=== PATIENT | female | born 1945 | race Caucasian/White ===

== ENCOUNTER 2022-07-01 00:53 | Inpatient (IN) ==
[2022-07-01] MEDS ORDERED: STAT IV Infusion **Titration per Protocol STA (01:03)
--- NOTE | 2022-07-01 01:06 | Emergency Department Note ---
Impression & Plan Atrial fibrillation with RVR ADMIT ED Provider Note HPI: The patient is a 77-year-old female with history of paroxysmal atrial fibrillation, not on any anticoagulation, presents the emergency department this evening with a chief complaint of palpitations. Patient arrives via EMS, states that approximately 2 hours prior to arrival she began to experience a sensation of palpitations similar to those that she is experienced in the past associated with atrial fibrillation with RVR. Patient states that she did take a dose of her as needed propranolol but this did not resolve her symptoms. Patient then contacted EMS. She stated that she was feeling lightheaded at the time. EMS arrived, patient was given a diltiazem bolus and IV fluid bolus prior to arrival here to the ED. On arrival patient's heart rate is improved into the 130s from 150s-180s. Patient is conversational on arrival, states that she is feeling much improved, denies any chest pain or shortness of breath. Patient is saturating well on room air on arrival. ROS: -Cardio: Palpitations/atrial fibrillation with RVR *10 point review systems was conducted and is otherwise negative unless stated above *Outpatient medications and allergy history reviewed PE: General: Alert, NAD HEENT: Normocephalic, atraumatic Eyes: Extraocular eye movement is intact, no scleral erythema Pulmonary: Clear to auscultation bilaterally, no wheezing Cardio: Regular rate and rhythm GI: Abdomen is soft, nontender : No suprapubic tenderness MSK: No evidence of trauma or malformation of the extremities, no edema Skin: No evidence of rash Neuro: Alert, no focal deficits Psychiatric: Cooperative cardiac monitor technician: - An order was placed for continuous cardiac monitoring - Patient was noted to be in atrial fibrillation with a rate of 145 EKG: Rate: 133 Rhythm: Atrial fibrillation Intervals: Within normal limits ST changes: No ST elevation Time: 0102 Medical Decision Making: Patient presented to the emergency department with a chief complaint of palpitations. She has a history of paroxysmal atrial fibrillation. Shortly after arrival patient was placed on monitor tech, IV established, lab work obtained. Patient's lab work is largely unremarkable, troponin is within normal limits, no critical electrolyte abnormalities are noted. TSH is within normal limits. Patient was placed on a diltiazem drip, heart rates remained elevated although improved, she remained in the 120s mostly on diltiazem drip and therefore was given IV metoprolol in addition, this did result in good rate control however the patient remained in atrial fibrillation despite observation here in the ED for multiple hours. In my reassessment the patient is in atrial fibrillation, she is not on anticoagulation, I discussed options for admission versus anticoagulation and discharge, at this time I believe it is most appropriate for the patient to be admitted for cardiology consultation, to which the patient is in agreement. She will be placed on heparin drip as she may potentially be arranged for cardioversion in the morning, if determined appropriate by cardiology. Patient expressed an agreement understanding. Case was discussed with the on-call hospitalist for [facility], Dr. Blankenship, and the patient was admitted in stable condition to a telemetry bed on heparin drip for further care. * CRITICAL CARE TIME: (50) minutes -Stabilization of tachyarrhythmia/atrial fibrillation with RVR requiring administration of IV rate control agents, time spent at the bedside, interpretation of diagnostic studies and EKGs, arrangement of admission Diagnosis: 1. Atrial fibrillation with RVR Disposition: Admission Jack Murillo DO Emergency Medicine Past Med/Surg History Social History Smoking Status: Never smoker Preferred Language: Andorran Feels Safe at Home: Yes Allergies Allergies Allergy/AdvReac Type Severity Reaction Status Date / Time Iodinated Contrast Media Allergy Intermediate Hives Verified 07/01/22 03:05 Sulfa (Sulfonamide Allergy Intermediate Rash Verified 07/01/22 03:05 Antibiotics) morphine AdvReac Severe SEVERE Verified 07/01/22 03:05 VOMITING Home Meds Home Medications Medication Instructions Recorded Confirmed levothyroxine 50 mcg tablet 50 mcg PO DAILYBB 04/10/22 07/01/22 propranolol 10 mg tablet 10 mg PO DIRECTED PRN A-FIB 04/10/22 07/01/22 EPISODES Results & Data (ED) Vital Signs Vital Signs - 24 hr 07/01/22 01:07 07/01/22 01:07 07/01/22 01:07 Temperature 36.8 C Temperature Source Oral Pulse Rate 134 H 139 H Pulse Rate from SpO2 Sensor Pulse Rhythm Regular Irregular Pulse Strength Normal Respiratory Rate 18 18 Respiratory Effort / Characteristics Non-Labored Spontaneous Respiratory Depth Normal Respiratory Pattern Regular Blood Pressure 127/80 Blood Pressure Mean 95 Blood Pressure Position Semi-fowlers Pulse Oximetry 98 98 97 Oxygen Delivery Method Room Air Room Air Room Air Oxygen Flow Rate 0 Sepsis Recent Fever Within 48 Hours No Sepsis New/Unexplained Change in Mental Status No Sepsis Action Taken by Nursing No Action Required 07/01/22 01:03 07/01/22 01:30 07/01/22 01:31 Temperature Temperature Source Pulse Rate 125 H 136 H Pulse Rate from SpO2 Sensor Pulse Rhythm Pulse Strength Respiratory Rate 16 18 Respiratory Effort / Characteristics Respiratory Depth Respiratory Pattern Blood Pressure 106/71 Blood Pressure Mean 82 Blood Pressure Position Pulse Oximetry 99 93 Oxygen Delivery Method Oxygen Flow Rate Sepsis Recent Fever Within 48 Hours Sepsis New/Unexplained Change in Mental Status Sepsis Action Taken by Nursing 07/01/22 01:31 07/01/22 02:00 07/01/22 02:00 Temperature Temperature Source Pulse Rate 105 H Pulse Rate from SpO2 Sensor Pulse Rhythm Pulse Strength Respiratory Rate 14 17 Respiratory Effort / Characteristics Respiratory Depth Respiratory Pattern Blood Pressure 130/71 Blood Pressure Mean 90 Blood Pressure Position Pulse Oximetry 96 95 Oxygen Delivery Method Oxygen Flow Rate Sepsis Recent Fever Within 48 Hours Sepsis New/Unexplained Change in Mental Status Sepsis Action Taken by Nursing 07/01/22 02:15 07/01/22 02:15 07/01/22 02:23 Temperature Temperature Source Pulse Rate 104 H Pulse Rate from SpO2 Sensor 92 H Pulse Rhythm Pulse Strength Respiratory Rate 20 19 Respiratory Effort / Characteristics Respiratory Depth Respiratory Pattern Blood Pressure 128/89 Blood Pressure Mean 102 Blood Pressure Position Pulse Oximetry 96 95 Oxygen Delivery Method Oxygen Flow Rate Sepsis Recent Fever Within 48 Hours Sepsis New/Unexplained Change in Mental Status Sepsis Action Taken by Nursing 07/01/22 02:23 07/01/22 02:30 07/01/22 02:30 Temperature Temperature Source Pulse Rate 87 Pulse Rate from SpO2 Sensor 79 Pulse Rhythm Pulse Strength Respiratory Rate 20 Respiratory Effort / Characteristics Respiratory Depth Respiratory Pattern Blood Pressure 102/66 104/75 Blood Pressure Mean 78 84 Blood Pressure Position Pulse Oximetry 95 Oxygen Delivery Method Oxygen Flow Rate Sepsis Recent Fever Within 48 Hours Sepsis New/Unexplained Change in Mental Status Sepsis Action Taken by Nursing Laboratory Data Result diagrams: 07/01/22 01:09 07/01/22 01:09 Lab Results 07/01/22 07/01/22 07/01/22 Range/Units 01:09 01:09 01:09 WBC 4.52 L (4.8-10.8) K/ul RBC 4.34 (3.93-5.22) M/uL Hgb 13.0 (12.0-16.0) g/dl Hct 38.7 (34.1-44.9) % MCV 89.2 (80.0-100.0) fL MCH 30.0 (25.0-34.0) pg MCHC 33.6 (32.0-36.0) g/dL RDW Std Deviation 43.8 (36.4-46.3) fL RDW Coeff of Elysia 13.3 (11.5-14.5) % Plt Count 223 (130-400) K/uL MPV 8.8 L (9.4-12.3) fL Immature Gran % (Auto) 0.2 % Neut % (Auto) 43.2 % Lymph % (Auto) 40.9 % [place] % (Auto) 10.6 % Eos % (Auto) 4.2 % Baso % (Auto) 0.9 % Neut # (Auto) 1.95 (1.4-6.5) K/uL Lymph # (Auto) 1.85 (1.2-3.4) K/uL [place] # (Auto) 0.48 (0.24-0.82) K/uL Eos # (Auto) 0.19 (0-0.50) K/uL Baso # (Auto) 0.04 (0-0.2) K/uL Immature Gran # (Auto) 0.01 (0.00-0.02) K/uL PT 10.3 (9.0-12.0) Seconds INR 1.0 (0.9-1.1) APTT 24.2 (21.0-31.0) Seconds PTT Ratio 0.9 Sodium 140 (136-145) mmol/L Potassium 3.4 L (3.5-5.1) mmol/L Chloride 105 (98-107) mmol/L Carbon Dioxide 28 (21-32) mmol/L Anion Gap 7 (3-11) BUN 14 (6-23) mg/dl Creatinine 0.68 (0.6-1.2) mg/dl Est Cr Clr Drug Dosing 73.6 ml/min Est GFR ( Amer) 98.5 ml/min Est GFR (Non-Af Amer) 85.0 ml/min BUN/Creatinine Ratio 20.6 H (10-20) Glucose 111 H (70-99(Fasting)) mg/dl Calcium 9.4 (8.5-10.1) mg/dl Magnesium 1.8 (1.7-2.4) mg/dl Total Bilirubin 0.2 (0.2-1.0) mg/dl AST 17 (13-39) U/L ALT 12 (7-52) U/L Alkaline Phosphatase 58 (34-104) U/L Troponin I High Sens 5.5 (0-14) pg/ml Total Protein 6.7 (6.0-8.3) gm/dl Albumin 4.1 (3.4-5.0) gm/dl Globulin 2.6 (2.5-4.0) gm/dl Albumin/Globulin Ratio 1.6 (0.9-2) Lipase 33 (11-82) U/L TSH (0.300-4.500) uIu/ml 07/01/22 Range/Units 01:09 WBC (4.8-10.8) K/ul RBC (3.93-5.22) M/uL Hgb (12.0-16.0) g/dl Hct (34.1-44.9) % MCV (80.0-100.0) fL MCH (25.0-34.0) pg MCHC (32.0-36.0) g/dL RDW Std Deviation (36.4-46.3) fL RDW Coeff of Elysia (11.5-14.5) % Plt Count (130-400) K/uL MPV (9.4-12.3) fL Immature Gran % (Auto) % Neut % (Auto) % Lymph % (Auto) % [place] % (Auto) % Eos % (Auto) % Baso % (Auto) % Neut # (Auto) (1.4-6.5) K/uL Lymph # (Auto) (1.2-3.4) K/uL [place] # (Auto) (0.24-0.82) K/uL Eos # (Auto) (0-0.50) K/uL Baso # (Auto) (0-0.2) K/uL Immature Gran # (Auto) (0.00-0.02) K/uL PT (9.0-12.0) Seconds INR (0.9-1.1) APTT (21.0-31.0) Seconds PTT Ratio Sodium (136-145) mmol/L Potassium (3.5-5.1) mmol/L Chloride (98-107) mmol/L Carbon Dioxide (21-32) mmol/L Anion Gap (3-11) BUN (6-23) mg/dl Creatinine (0.6-1.2) mg/dl Est Cr Clr Drug Dosing ml/min Est GFR ( Amer) ml/min Est GFR (Non-Af Amer) ml/min BUN/Creatinine Ratio (10-20) Glucose (70-99(Fasting)) mg/dl Calcium (8.5-10.1) mg/dl Magnesium (1.7-2.4) mg/dl Total Bilirubin (0.2-1.0) mg/dl AST (13-39) U/L ALT (7-52) U/L Alkaline Phosphatase (34-104) U/L Troponin I High Sens (0-14) pg/ml Total Protein (6.0-8.3) gm/dl Albumin (3.4-5.0) gm/dl Globulin (2.5-4.0) gm/dl Albumin/Globulin Ratio (0.9-2) Lipase (11-82) U/L TSH 3.550 (0.300-4.500) uIu/ml Administered Medications Diltiazem HCl 125 mg/ Dextrose 125 mls @ 5 mls/hr IV .Q24H [facility]; Protocol Stop: 07/31/22 01:14 Last Admin: 07/01/22 01:24 Dose: 5 mg/hr, 5 mls/hr Documented By: CHATO Co-signed By: NICOLÁS Discontinued Medications Sodium Chloride (Nss 1000ml) 500 mls @ 999 mls/hr IV .Q31M ONE Stop: 07/01/22 02:29 Last Infusion: 07/01/22 03:23 Dose: 0 mls/hr Documented By: Admin: 07/01/22 02:15 Dose: 999 mls/hr Documented By: CHATO Metoprolol Tartrate (Metoprolol Tartrate 1 Mg/Ml Vial) 5 mg IV NOW STA Stop: 07/01/22 01:59 Last Admin: 07/01/22 02:14 Dose: 5 mg Documented By: CHATO Discharge Plan Visit Data Chief Complaint: Tachycardia ED Provider: Jack Murillo Discharge Problem: Atrial fibrillation with RVR Patient Disposition: Admitted As Inpatient Forms Stand Alone Forms: [facility], Virtual Emergency Department, Important Visit Information Prescriptions Prescriptions: No Action levothyroxine 50 mcg Tablet 50 mcg PO DAILYBB propranolol 10 mg tablet 10 mg PO DIRECTED PRN (Reason: A-FIB EPISODES) Referrals Referrals: Otto Pinzon DO [Primary Care Provider] -
[2022-07-01] MEDS ORDERED: dilTIAZem HCL 125 MG in DEXTROSE 5% 100 ML IV SCH (01:15)
[2022-07-01 01:17] LABS: Basophils # (auto) 0.04 K/uL (0-0.2); Basophils % (auto) 0.9 %; Eosinophils # (auto) 0.19 K/uL (0-0.50); Eosinophils % (auto) 4.2 %; Hematocrit (blood only) 38.7 % (34.1-44.9); Immature Granulocytes # (auto) 0.01 K/uL (0.00-0.02); Immature Granulocytes % (auto) 0.2 %; Lymphocytes # (auto) 1.85 K/uL (1.2-3.4); Lymphocytes % (auto) 40.9 %; Mean Corpuscular Hgb Conc 33.6 g/dL (32.0-36.0); Mean Corpuscular Volume 89.2 fL (80.0-100.0); Mean Platelet Volume 8.8 fL (9.4-12.3); Monocytes # (auto) 0.48 K/uL (0.24-0.82); Monocytes % (auto) 10.6 %; Neutrophils # (auto) 1.95 K/uL (1.4-6.5); Neutrophils % (auto) 43.2 %; Platelet Count 223 K/uL (130-400); RDW Coefficient of Variation 13.3 % (11.5-14.5); RDW Standard Deviation 43.8 fL (36.4-46.3); Red Blood Count 4.34 M/uL (3.93-5.22); White Blood Count 4.52 K/ul (4.8-10.8)
[2022-07-01 01:33] LABS: Partial Thromboplastin Ratio 0.9; Partial Thromboplastin Time 24.2 Seconds (21.0-31.0); Prothrombin Time 10.3 Seconds (9.0-12.0)
[2022-07-01 01:40] LABS: Albumin Globulin Ratio 1.6 (0.9-2); Albumin Level 4.1 gm/dl (3.4-5.0); BUN Creatinine Ratio 20.6 (10-20); Bilirubin,Total 0.2 mg/dl (0.2-1.0); Calcium 9.4 mg/dl (8.5-10.1); Creatinine Clr Calc Pharmacy 73.6 ml/min; Est GFR (African American) 98.5 ml/min; Globulin 2.6 gm/dl (2.5-4.0); Magnesium 1.8 mg/dl (1.7-2.4); Potassium 3.4 mmol/L (3.5-5.1); Total Protein 6.7 gm/dl (6.0-8.3)
[2022-07-01 01:45] LABS: Troponin I High Sensitivity 5.5 pg/ml (0-14)
[2022-07-01] MEDS ORDERED: METOPROLOL TARTRATE 1 MG/ML VIAL IV STA (01:58)
[2022-07-01] MEDS ORDERED: SODIUM CHLORIDE 0.9% 1000ML 500 ML IV ONE (01:59)
[2022-07-01] MEDS ORDERED: Heparin IV Adult Wt-Based Standard *NO* Bolus Protocol IV ONE (04:08)
[2022-07-01] MEDS ORDERED: POTASSIUM CHLORIDE CRTAB 20 MEQ TABCR PO STA (04:13)
[2022-07-01] MEDS ORDERED: LACTATED RINGER'S 1,000 ML IV ONE (04:13)
[2022-07-01] MEDS ORDERED: MAGNESIUM SULFATE / D5W 1 GM/100 ML BAG IV ONE (04:13)
[2022-07-01] MEDS ORDERED: HEPARIN SODIUM/DEXTROSE 25,000 UNITS/500 ML BAG IV SCH (04:30)
[2022-07-01] MEDS ORDERED: METOPROLOL TARTRATE 25 MG TAB PO STA (05:48)
--- NOTE | 2022-07-01 05:48 | History & Physical Report ---
Date of Service July 01, 2022 Assessment & Plan (1) Atrial fibrillation with RVR: Plan: Recurrent A. fib hx PSVT Past history cardioversion for A. fib chronic systolic heart failure (EF 45 to 49%, TTE 2014), patient euvolemic valvular heart disease (moderate MR, mild TR) hyperlipidemia as per records hypothyroidism, euthyroid as of today's TSH Hypokalemia Hyperglycemia rule out DM PCU Initiate Lopressor for rate control Wean off Cardizem drip Continue IV heparin initiated at the ER for thromboembolic prophylaxis TTE, Cardiology consult Re: Recurrent A. fib N.p.o. until patient seen by cardiology in anticipation of cardioversion given definite AF symptom onset of less than 24 hours replace electrolytes Check hemoglobin A1c DVT prophylaxis with IV heparin Full code Text document was generated using [employer] voice recognition software. It may contain grammatical or spelling errors. Kindly contact undersigned for clarification of any documentation item in question. History of Present Illness Chief Complaint: A. fib, palpitations Primary Care Provider: Otto Pinzon DO History obtained from patient and records. Medical history significant for chronic systolic heart failure (EF 45 to 49%, TTE 2014), valvular heart disease (moderate MR, mild TR), paroxysmal A. fib status post cardioversion/PSVT, hyperlipidemia, hypothyroidism. Patient has a known history of paroxysmal A. fib since 2014. History of cardioversion at that emergency room in [facility]. Patient's cross tie cutter from [facility] did not recommend anticoagulation. Patient instructed to take propranolol as needed for A. fib attack. Recent ER visit last March 2022 for third episode of recurrent A. fib. Patient discharged after spontaneous conversion at the ER. Patient seen by [facility] cross tie cutter last week. Patient instructed to monitor her pulse with her apple watch. Anticoagulation not recommended due to patient risk factors. Anticoagulation to be reconsidered if burden of A. fib become significant as per documentation. Patient was getting ready to go to bed last night when she experienced palpitations similar to A. fib episodes. Apple watch alerted her to fast heartbeat. Chest pain or shortness of breath. No unusual stress. SBP 150s which is unusual for her. No response to propranolol Home Rx. EMS alerted. Patient noted to be in rapid A. fib. Cardizem bolus administered prior to ER arrival. IV Lopressor administered at the ER followed by IV Cardizem infusion. IV heparin subsequently initiated at the ER. Medical History as above Surgical History : Lesion excision, knee surgery, BTL, cataract surgeries, tonsillectomy/adenoidectomy, AURELIA Family History : Breast cancer, colon cancer, lung cancer, stroke Personal/Social history : Non-smoker, occasional EtOH intake, nurse educator Allergies Allergy/AdvReac Type Severity Reaction Status Date / Time Iodinated Contrast Media Allergy Intermediate Hives Verified 07/01/22 03:05 Sulfa (Sulfonamide Allergy Intermediate Rash Verified 07/01/22 03:05 Antibiotics) morphine AdvReac Severe SEVERE Verified 07/01/22 03:05 VOMITING Home Medications Medication Instructions Recorded Confirmed Type levothyroxine 50 mcg tablet 50 mcg PO DAILYBB 04/10/22 07/01/22 History propranolol 10 mg tablet 10 mg PO DIRECTED PRN A-FIB 04/10/22 07/01/22 History EPISODES Past Med/Surg History Social History Smoking Status: Never smoker Preferred Language: Finnish Feels Safe at Home: Yes Review of Systems Review of Systems: As per HPI, all other systems reviewed and negative Physical Exam Physical Exam: GENERAL: Comfortable, slightly anxious, no respiratory distress SKIN: Normal color, warm HEENT: [place] palpebral conjunctivae, no ptosis, dry buccal mucosa NECK : Supple, no tenderness CHEST : CTA, no tenderness HEART : Irregular, no obvious murmurs ABDOMEN: no distention, nontender EXTREMITIES : No LE swelling/tenderness, no other conspicuous deformities noted NEUROLOGIC : Coherent, no facial asymmetry, no other gross focality Results & Data Results & Data ([facility]) Vital Signs (Past 12 Hours) Vital Signs Temp Pulse Pulse Resp BP BP Pulse Ox 07/01/22 05:38 95 H 16 101/67 95 07/01/22 04:43 82 16 112/87 92 07/01/22 04:10 95 H 16 99/59 L 96 07/01/22 02:30 87 20 95 07/01/22 02:30 104/75 07/01/22 02:23 102/66 07/01/22 02:23 104 H 19 95 07/01/22 02:15 128/89 07/01/22 02:15 20 96 07/01/22 02:00 17 95 07/01/22 02:00 130/71 07/01/22 01:31 105 H 14 96 07/01/22 01:31 106/71 07/01/22 01:30 136 H 18 93 07/01/22 01:03 125 H 16 99 07/01/22 01:07 139 H 18 97 07/01/22 01:07 98 07/01/22 01:07 36.8 C 134 H 18 127/80 98 O2 Del Method O2 Flow Rate 07/01/22 05:38 Room Air 07/01/22 04:43 Room Air 07/01/22 04:10 Room Air 07/01/22 02:30 07/01/22 02:30 07/01/22 02:23 07/01/22 02:23 07/01/22 02:15 07/01/22 02:15 07/01/22 02:00 07/01/22 02:00 07/01/22 01:31 07/01/22 01:31 07/01/22 01:30 07/01/22 01:03 07/01/22 01:07 Room Air 07/01/22 01:07 Room Air 0 07/01/22 01:07 Room Air Laboratory Results Laboratory Results WBC 4.52 K/ul (4.8-10.8) L 07/01/22 01:09 RBC 4.34 M/uL (3.93-5.22) 07/01/22 01:09 Hgb 13.0 g/dl (12.0-16.0) 07/01/22 01:09 Hct 38.7 % (34.1-44.9) 07/01/22 01:09 MCV 89.2 fL (80.0-100.0) 07/01/22 01:09 MCH 30.0 pg (25.0-34.0) 07/01/22 01:09 MCHC 33.6 g/dL (32.0-36.0) 07/01/22 01:09 RDW Std Deviation 43.8 fL (36.4-46.3) 07/01/22 01:09 RDW Coeff of Elysia 13.3 % (11.5-14.5) 07/01/22 01:09 Plt Count 223 K/uL (130-400) 07/01/22 01:09 MPV 8.8 fL (9.4-12.3) L 07/01/22 01:09 Immature Gran % (Auto) 0.2 % 07/01/22 01:09 Neut % (Auto) 43.2 % 07/01/22 01:09 Lymph % (Auto) 40.9 % 07/01/22 01:09 [place] % (Auto) 10.6 % 07/01/22 01:09 Eos % (Auto) 4.2 % 07/01/22 01:09 Baso % (Auto) 0.9 % 07/01/22 01:09 Neut # (Auto) 1.95 K/uL (1.4-6.5) 07/01/22 01:09 Lymph # (Auto) 1.85 K/uL (1.2-3.4) 07/01/22 01:09 [place] # (Auto) 0.48 K/uL (0.24-0.82) 07/01/22 01:09 Eos # (Auto) 0.19 K/uL (0-0.50) 07/01/22 01:09 Baso # (Auto) 0.04 K/uL (0-0.2) 07/01/22 01:09 Immature Gran # (Auto) 0.01 K/uL (0.00-0.02) 07/01/22 01:09 PT 10.3 Seconds (9.0-12.0) 07/01/22 01:09 INR 1.0 (0.9-1.1) 07/01/22 01:09 APTT 24.2 Seconds (21.0-31.0) 07/01/22 01:09 PTT Ratio 0.9 07/01/22 01:09 Sodium 140 mmol/L (136-145) 07/01/22 01:09 Potassium 3.4 mmol/L (3.5-5.1) L 07/01/22 01:09 Chloride 105 mmol/L (98-107) 07/01/22 01:09 Carbon Dioxide 28 mmol/L (21-32) 07/01/22 01:09 Anion Gap 7 (3-11) 07/01/22 01:09 BUN 14 mg/dl (6-23) 07/01/22 01:09 Creatinine 0.68 mg/dl (0.6-1.2) 07/01/22 01:09 Est Cr Clr Drug Dosing 73.6 ml/min 07/01/22 01:09 Est GFR ( Amer) 98.5 ml/min 07/01/22 01:09 Est GFR (Non-Af Amer) 85.0 ml/min 07/01/22 01:09 BUN/Creatinine Ratio 20.6 (10-20) H 07/01/22 01:09 Glucose 111 mg/dl (70-99(Fasting)) H 07/01/22 01:09 Calcium 9.4 mg/dl (8.5-10.1) 07/01/22 01:09 Magnesium 1.8 mg/dl (1.7-2.4) 07/01/22 01:09 Total Bilirubin 0.2 mg/dl (0.2-1.0) 07/01/22 01:09 AST 17 U/L (13-39) 07/01/22 01:09 ALT 12 U/L (7-52) 07/01/22 01:09 Alkaline Phosphatase 58 U/L (34-104) 07/01/22 01:09 Troponin I High Sens 5.5 pg/ml (0-14) 07/01/22 01:09 Total Protein 6.7 gm/dl (6.0-8.3) 07/01/22 01:09 Albumin 4.1 gm/dl (3.4-5.0) 07/01/22 01:09 Globulin 2.6 gm/dl (2.5-4.0) 07/01/22 01:09 Albumin/Globulin Ratio 1.6 (0.9-2) 07/01/22 01:09 Lipase 33 U/L (11-82) 07/01/22 01:09 TSH 3.550 uIu/ml (0.300-4.500) 07/01/22 01:09 SARS-CoV-2, RNA, NAAT NEGATIVE (NEGATIVE) 07/01/22 04:08 Diagnostic Findings Chest x-ray as per my interpretation cardiomegaly EKG as per my interpretation :rate 85, A. fib, normal axis, no ischemia
[2022-07-01 06:36] LABS: Estimated Average Glucose 114 mg/dl; Hemoglobin A1C 5.6 % (4.5-5.6)
[2022-07-01] MEDS ORDERED: POTASSIUM CHLORIDE PWD 20 MEQ PACK PO SCH (09:00)
--- NOTE | 2022-07-01 09:26 | XRay Report ---
XR chest 1V portable HISTORY: Palpitations. Atypical Chest Pain COMPARISON: Chest 04/10/2022. FINDINGS: No pneumothorax. The cardiac silhouette remains mildly enlarged. There is a tortuous thorac ic aorta, unchanged. No focal lung consolidations to suggest pneumonia. No evidence for pulmonary blaa ma. No pleural effusions. IMPRESSION: No significant change compared to the prior study. No acute process. ACT 112: Negative or not required by law. Electronically signed by: Naseem Shrestha M.D. 07/01/2022 9:24 AM
[2022-07-01] MEDS ORDERED: traMADol HCL 50 MG TABLET PO PRN (10:16)
[2022-07-01] MEDS ORDERED: LORazepam 0.5 MG TAB PO PRN (10:16)
[2022-07-01] MEDS ORDERED: ACETAMINOPHEN 325 MG TAB PO PRN (10:16)
[2022-07-01] MEDS ORDERED: PROMETHAZINE HCL 6.25 MG in SODIUM CHLORIDE 0.9% 50 ML IV PRN (10:16)
[2022-07-01] MEDS ORDERED: LEVOTHYROXINE SODIUM 50 MCG TABLET PO SCH (10:45)
[2022-07-01 11:35] LABS: Partial Thromboplastin Ratio 2.3; Prothrombin Time 10.5 Seconds (9.0-12.0)
[2022-07-01 11:38] LABS: Partial Thromboplastin Time 63.5 Seconds (21.0-31.0)
[2022-07-01] MEDS ORDERED: APIXABAN 5 MG TABLET PO SCH (12:45)
[2022-07-01] MEDS ORDERED: METOPROLOL SUCC 25MG EXT REL TAB PO SCH (12:45)
--- NOTE | 2022-07-01 12:55 | Cardiology Consultation ---
Date of Consultation July 01, 2022 Assessment & Plan (1) Paroxysmal atrial fibrillation: -As noted, patient received appropriate electrolyte replacement with potassium and magnesium. She is converted back to sinus rhythm after receiving IV diltiazem, IV metoprolol, and a dose of oral metoprolol tartrate. She is currently on heparin for stroke prophylaxis, which was started overnight. At the time of her recent outpatient visit, it been discussed with the patient his had only a few atrial fibrillation episodes dating back to 2014, she typically notices the onset of symptoms, and also has technology including her apple watch to help her monitor her heart rate. Ongoing observation was recommended at that time. But she has had another episode today. We once again discussed both symptomatic treatment and options with regards to stroke prophylaxis. The patient's [id number] score is calculated to be 3 for risk factors of female sex and age over 75 years. This places her at a moderate risk of cardioembolic stroke. Given the fact that she has had an additional episode, I would recommend proceeding with systemic anticoagulation. We discussed options such as warfarin or a direct oral anticoagulant agent. She is agreeable to proceeding with Eliquis 5 mg twice daily. [facility], and determined her [id number] cost would b $47 / month. She may find additional savings by enrolling with the mail order pharmacy. Recommend proceeding with metoprolol succinate 25 mg daily to replace her propranolol. Patient agreeable to this plan. I will update Dr Guadarrama about the change. Will arrange local cardiology follow up. Pt stable for discharge from the ED. Case reviewed with Dr Gloria. 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 Pizarro for the evaluation of recurrent symptomatic atrial fibrillation. The patient states that she was in her normal state of health until last evening at about 11 PM when she laid down to go to sleep and she felt an irregular heart rhythm. She tried to assess her heart rhythm and rate with her apple watch, but the heart rate was so fast it was unable to detect things. She subsequently took a reading with her home blood pressure cuff and received a heart rate reading in the 150s, and systolic blood pressure in the 150s which is very high for her. She presented to the emergency department and initial EKG performed 07/01/2022 at 1:02 AM and interpreted independently revealed atrial fibrillation with rapid ventricular response at 133 bpm, age-indeterminate septal infarction pattern noted in lead V2. No significant repolarization changes. The patient received medication therapy including IV diltiazem, IV metoprolol, a dose of oral metoprolol tartrate 12.5 mg x 1, as well as potassium and magnesium supplementation with noted conversion back to sinus rhythm this morning 07/01/2022 at 10 AM without conversion pause. Follow-up EKG performed at 10:06 AM and reviewed independently reveals normal si nus rhythm at 70 bpm, appropriate R wave progression no noted, without significant repolarization changes, QT interval normal at 419 ms. The patient follows with Dr. Audrey Guadarrama of [facility] electrophysiology, with most recent follow-up visit having been on 06/26/2022. Per discussion with patient as well as review of those records, she has a longstanding history of brief episodes of supraventricular tachycardia. She was first diagnosed with an episode of atrial fibrillation in 2014, and had undergone cardioversion in the emergency department at [facility] in [facility] then. She had a recurrent episode in 2018. Most recently she had presented to [facility] in March of this year, with additional episode, with noted conversion back to sinus rhythm after receiving IV diltiazem at that time. She takes propranolol 10 mg on an as-needed basis for palpitations which she has done for years dating back to prior to 1989. She does not take a daily beta- ramona. Her history is otherwise notable for hypothyroidism and contrast allergy. Allergies Allergy/AdvReac Type Severity Reaction Status Date / Time Iodinated Contrast Media Allergy Intermediate Hives Verified 07/01/22 03:05 Sulfa (Sulfonamide Allergy Intermediate Rash Verified 07/01/22 03:05 Antibiotics) morphine AdvReac Severe SEVERE Verified 07/01/22 03:05 VOMITING Home Medications Medication Instructions Recorded Confirmed Type levothyroxine 50 mcg tablet 50 mcg PO DAILYBB 04/10/22 07/01/22 History propranolol 10 mg tablet 10 mg PO DIRECTED PRN A-FIB 04/10/22 07/01/22 History EPISODES Patient History Social History Smoking Status: Never smoker Second Hand Exposure: No; Do You Dip or Chew Tobacco: No; Hx Alcohol Use: No Hx Substance Use: No Preferred Language: Zimbabwean Communication Ability: Effective 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 Beliefs That Will Affect Care: None Current Living Situation: Alone Other Information That Helps Us Care for You: No Feels Safe at Home: Yes Safety Concerns: Feels Safe At This Time Review of Systems Review of Systems: All systems reviewed & are unremarkable except as noted in HPI & below Physical Exam Physical Exam: Temp Pulse Resp BP Pulse Ox O2 Del Method O2 Flow Rate 36.8 C 79 21 134/85 96 0 07/01/22 01:07 07/01/22 10:00 07/01/22 10:00 07/01/22 10:00 07/01/22 08:29 07/01/22 06:40 07/01/22 01:07 Constitutional: WD/WN, vitals as above Respiratory: normal respiratory effort, lungs clear to auscultation Cardiovascular: RRR, no murmur, no edema Gastrointestinal (Abdomen): normal bowel sounds, soft, nontender, no hepatosplenomegaly Neurologic: PERRL, EOMI, accommodation nl, no face palsy, no dysarthria Results & Data ([facility]) Laboratory Results Cardiac Enzymes 07/01/22 Range/Units 01:09 AST 17 (13-39) U/L Troponin I High Sens 5.5 (0-14) pg/ml Coagulation 07/01/22 07/01/22 Range/Units 01:09 10:43 PT 10.3 10.5 (9.0-12.0) Seconds APTT 24.2 63.5 H* (21.0-31.0) Seconds CBC 07/01/22 Range/Units 01:09 WBC 4.52 L (4.8-10.8) K/ul RBC 4.34 (3.93-5.22) M/uL Hgb 13.0 (12.0-16.0) g/dl Hct 38.7 (34.1-44.9) % Plt Count 223 (130-400) K/uL Neut # (Auto) 1.95 (1.4-6.5) K/uL Lymph # (Auto) 1.85 (1.2-3.4) K/uL [place] # (Auto) 0.48 (0.24-0.82) K/uL Eos # (Auto) 0.19 (0-0.50) K/uL Baso # (Auto) 0.04 (0-0.2) K/uL Comprehensive Metabolic Panel 07/01/22 Range/Units 01:09 Sodium 140 (136-145) mmol/L Potassium 3.4 L (3.5-5.1) mmol/L Chloride 105 (98-107) mmol/L Carbon Dioxide 28 (21-32) mmol/L BUN 14 (6-23) mg/dl Creatinine 0.68 (0.6-1.2) mg/dl Glucose 111 H (70-99(Fasting)) mg/dl Calcium 9.4 (8.5-10.1) mg/dl AST 17 (13-39) U/L ALT 12 (7-52) U/L Alkaline Phosphatase 58 (34-104) U/L Total Protein 6.7 (6.0-8.3) gm/dl Albumin 4.1 (3.4-5.0) gm/dl Intake and Output 06/30/22 07/01/22 07/01/22 22:59 06:59 14:59 Intake Total 624.167 / 624.167 5.417 / 5.417 Balance 624.167 / 624.167 5.417 / 5.417 Intake: IV 624.167 / 624.167 5.417 / 5.417 Magnesium Sulfate / D5w 1 gm In 100 / 100 100 ml @ 50 mls/hr IV ONE ONE Rx#:[id number] Sodium Chloride 0.9% 1000ML 500 500 / 500 ml @ 999 mls/hr IV .Q31M ONE Rx#:[id number] dilTIAZem HCL 125 mg In 24.167 / 24.167 5.417 / 5.417 Dextrose 5% 100 ml @ 5 MG/HR 5 mls/hr IV .Q24H [facility] Rx#: [id number] Other: Weight 69.4 kg 69.4 kg Weight Measurement Method [facility] Patient Weight 07/02/22 06:59 Weight 69.4 kg Diagnostic Findings Summary of radiology report chest x-ray, no acute intrathoracic process. Echocardiogram performed today 07/01/2022 and reviewed independently: Rate controlled atrial fibrillation noted at the time of the study. Borderline to mild left atrial dilatation present, normal left ventricular wall motion, LVEF 55 to 60%, mild to moderate mitral vegetation is present.
--- NOTE | 2022-07-01 16:21 | Electrocardiogram Report ---
Test Reason : Blood Pressure : / mmHG Vent. Rate : 133 BPM Atrial Rate : 144 BPM P-R Int : 000 ms QRS Dur : 086 ms QT Int : 312 ms P-R-T Axes : 000 -28 092 degrees QTc Int : 464 ms Atrial fibrillation with rapid ventricular response Septal infarct , age undetermined Abnormal ECG When compared with ECG of 10-APR-2022 04:37, Atrial fibrillation has replaced Sinus rhythm Vent. rate has increased BY 60 BPM Septal infarct is now Present ST now depressed in Inferior leads Confirmed by Jamel Hsu ([id number]) on 07/01/2022 4:21:05 PM Referred By: REFERRED SELF Confirmed By:Jamel Hsu
--- NOTE | 2022-07-01 16:23 | Electrocardiogram Report ---
Test Reason : Blood Pressure : / mmHG Vent. Rate : 085 BPM Atrial Rate : 312 BPM P-R Int : 000 ms QRS Dur : 086 ms QT Int : 350 ms P-R-T Axes : 000 -26 050 degrees QTc Int : 416 ms Atrial fibrillation Abnormal ECG When compared with ECG of 01-JUL-2022 01:02, (unconfirmed) Vent. rate has decreased BY 48 BPM Criteria for Septal infarct are no longer Present ST no longer depressed in Lateral leads Confirmed by Jamel Hsu ([id number]) on 07/01/2022 4:23:21 PM Referred By: REFERRED SELF Confirmed By:Jamel Hsu
--- NOTE | 2022-07-01 16:28 | Electrocardiogram Report ---
Test Reason : Blood Pressure : / mmHG Vent. Rate : 070 BPM Atrial Rate : 070 BPM P-R Int : 146 ms QRS Dur : 088 ms QT Int : 388 ms P-R-T Axes : 053 -22 068 degrees QTc Int : 419 ms Poor data quality, interpretation may be adversely affected Normal sinus rhythm with sinus arrhythmia Normal ECG When compared with ECG of 01-JUL-2022 04:05, (unconfirmed) Sinus rhythm has replaced Atrial fibrillation Confirmed by Jamel Hsu ([id number]) on 07/01/2022 4:28:10 PM Referred By: REFERRED SELF Confirmed By:Jamel Hsu
--- NOTE | 2022-07-01 17:39 | Hospitalist Progress Note ---
Date of Service July 01, 2022 Assessment & Plan (1) Atrial fibrillation with RVR: Plan: Per admitting service notes with addendum: Recurrent A. fib hx PSVT Past history cardioversion for A. fib -- Patient placed on IV Cardizem, IV heparin drip --Fortunately, patient converted to sinus rhythm --Dr. Goyal consulted Patient started on metoprolol succinate 25 mg p.o. daily, Eliquis 5 mg p.o. twice daily Follow-up with cardiology clinic in 2 to 3 weeks Mild hypokalemia --Potassium 3.4 --Potassium supplement ordered --Repeat potassium Follow-up with PCP chronic systolic heart failure (EF 45 to 49%, TTE 2014), patient euvolemic valvular heart disease (moderate MR, mild TR) hyperlipidemia as per records hypothyroidism, euthyroid Disposition Discharge patient to home plan of care discussed with patient in detail and at length all questions answered She is understanding, agreeable, comfortable with the plan of care Admission and Anticipated Discharge Date Admission Date: July 01, 2022 Subjective Follow-up for atrial fibrillation, etc. Patient converted to sinus rhythm Of Cardizem drip Sitting up in bed, comfortable, no distress no chest pain, dyspnea, palpitations, dizziness No other symptoms States she feels fine overall, ready for discharge Review of Systems Review of Systems: all noted and negative except for above Physical Exam Physical Exam: General- oriented x 3, not in distress, speaks in sentences with no effort or accessory muscle use Head- atraumatic Eyes- PERRL, EOMI, anicteric ENT- oropharynx clear Neck- supple, no JVD, no adenopathy, no thyromegaly; carotids +2/2, no bruits appreciated Lungs- clear to auscultation bilaterally, no rales/wheezes Heart- normal rate, regular rhythm; no murmur, no gallop, no rub appreciated Abdomen- normal bowel sounds, nondistended, soft, nontender, no masses or hepatosplenomegaly Extremities- no pretibial edema, no calf tenderness; peripheral pulses intact Neuro- alert, oriented x 3; CN 2-12 grossly intact; motor 5/5 bilaterally;sensation 100% on all extremities; no other gross focal neurologic deficits Skin- warm & dry Results & Data Results & Data ([facility]) Vital Signs (Past 12 Hours) Vital Signs Pulse Pulse Resp BP BP Pulse Ox O2 Del Method 07/01/22 13:47 81 20 117/81 98 07/01/22 10:00 79 21 07/01/22 10:00 134/85 07/01/22 09:31 132/90 07/01/22 09:31 124 H 18 07/01/22 09:30 124 H 26 H 07/01/22 09:11 109/84 07/01/22 09:11 119 H 17 07/01/22 09:00 116 H 21 07/01/22 08:38 132/93 07/01/22 08:29 117 H 31 H 96 07/01/22 08:06 102 H 32 H 07/01/22 08:06 130/75 07/01/22 08:00 98 H 14 92 07/01/22 08:00 83/55 L 07/01/22 07:30 88 16 97 07/01/22 07:30 93/53 L 07/01/22 07:01 109/87 07/01/22 07:01 99 H 19 07/01/22 07:00 106 H 18 98 07/01/22 06:30 99 H 14 07/01/22 06:40 79 16 97 Room Air 07/01/22 05:38 95 H 16 101/67 95 Room Air all noted and reviewed including below
--- NOTE | 2022-07-01 17:41 | Discharge Summary ---
Discharge Summary Date of Service July 01, 2022 Notes For Next Care Provider Please repeat potassium on follow-up rec: Hypokalemia Medication Changes From Visit New medications: Metoprolol succinate 25 mg p.o. daily Eliquis 5 mg p.o. twice daily Potassium 20 mill equivalents daily x2-week Admission HPI Per Admitting Provider History obtained from patient and records. Medical history significant for chronic systolic heart failure (EF 45 to 49%, TTE 2014), valvular heart disease (moderate MR, mild TR), paroxysmal A. fib status post cardioversion/PSVT, hyperlipidemia, hypothyroidism. Patient has a known history of paroxysmal A. fib since 2014. History of cardioversion at that emergency room in [facility]. Patient's rn telephonic from [facility] did not recommend anticoagulation. Patient instructed to take propranolol as needed for A. fib attack. Recent ER visit last March 2022 for third episode of recurrent A. fib. Patient discharged after spontaneous conversion at the ER. Patient seen by [facility] rn telephonic last week. Patient instructed to monitor her pulse with her apple watch. Anticoagulation not recommended due to patient risk factors. Anticoagulation to be reconsidered if burden of A. fib become significant as per documentation. Patient was getting ready to go to bed last night when she experienced palpitations similar to A. fib episodes. Apple watch alerted her to fast heartbeat. Chest pain or shortness of breath. No unusual stress. SBP 150s which is unusual for her. No response to propranolol Home Rx. EMS alerted. Patient noted to be in rapid A. fib. Cardizem bolus administered prior to ER arrival. IV Lopressor administered at the ER followed by IV Cardizem infusion. IV heparin subsequently initiated at the ER. Medical History as above Surgical History : Lesion excision, knee surgery, BTL, cataract surgeries, tonsillectomy/adenoidectomy, AURELIA Family History : Breast cancer, colon cancer, lung cancer, stroke Personal/Social history : Non-smoker, occasional EtOH intake, nurse educator Admission Exam Per Admitting Provider GENERAL: Comfortable, slightly anxious, no respiratory distress SKIN: Normal color, warm HEENT: [place] palpebral conjunctivae, no ptosis, dry buccal mucosa NECK : Supple, no tenderness CHEST : CTA, no tenderness HEART : Irregular, no obvious murmurs ABDOMEN: no distention, nontender EXTREMITIES : No LE swelling/tenderness, no other conspicuous deformities noted NEUROLOGIC : Coherent, no facial asymmetry, no other gross focality Principal Dx & Hospital Course #1 = Principal Diagnosis (1) Atrial fibrillation with RVR: Per admitting service notes with addendum: Recurrent A. fib hx PSVT Past history cardioversion for A. fib -- Patient placed on IV Cardizem, IV heparin drip --Fortunately, patient converted to sinus rhythm --Dr. Goyal consulted Patient started on metoprolol succinate 25 mg p.o. daily, Eliquis 5 mg p.o. twice daily Follow-up with cardiology clinic in 2 to 3 weeks Mild hypokalemia --Potassium 3.4 --Potassium supplement ordered --Repeat potassium Follow-up with PCP chronic systolic heart failure (EF 45 to 49%, TTE 2014), patient euvolemic valvular heart disease (moderate MR, mild TR) hyperlipidemia as per records hypothyroidism, euthyroid Disposition Discharge patient to home plan of care discussed with patient in detail and at length all questions answered She is understanding, agreeable, comfortable with the plan of care Discharge Exam General- oriented x 3, not in distress, speaks in sentences with no effort or accessory muscle use Eyes- anicteric Neck- no JVD Lungs- clear breath sounds bilaterally, no rales/wheezes Heart- normal rate, regular rhythm; no murmurs Abdomen- normal bowel sounds, nondistended, soft, nontender Extremities- no pretibial edema, no calf tenderness Neuro- alert, oriented x 3; no gross focal neurologic deficits Skin- warm & dry Updated Medication List Medication Instructions Recorded Confirmed Type levothyroxine 50 mcg tablet 50 mcg PO DAILYBB 04/10/22 07/01/22 History apixaban 5 mg tablet (Eliquis) 5 mg PO BID 30 days #60 tabs 07/01/22 Rx metoprolol succinate 25 mg 25 mg PO QAM 30 days #30 tabs 07/01/22 Rx tablet,extended release 24 hr potassium chloride 20 mEq oral 20 meq PO DAILY #14 ea 07/01/22 Rx packet (Klor-Con) Hospital Stay Data Consultations 07/01/22 07:36 Consult Cardiology Routine 07/01/22 10:16 Consult Cardiology Routine Diagnostic Imagining Performed Chest X-Ray 07/01/22 01:02 XR chest 1V portable HISTORY: Palpitations. Atypical Chest Pain COMPARISON: Chest 04/10/2022. FINDINGS: No pneumothorax. The cardiac silhouette remains mildly enlarged. There is a tortuous thoracic aorta, unchanged. No focal lung consolidations to suggest pneumonia. No evidence for pulmonary edema. No pleural effusions. IMPRESSION: No significant change compared to the prior study. No acute process. ACT 112: Negative or not required by law. Electronically signed by: Naseem Shrestha M.D. 07/01/2022 9:24 AM Pending Results Patient Have Any Pending Studies at Discharge: No Discharge Instructions Given to Patient (Per Discharging Provider) PLEASE REFER TO YOUR NEW MEDICATION LIST AND FOLLOW INSTRUCTIONS CAREFULLY. YOUR NEW MEDICATIONS INCLUDE: Metoprolol succinate-for atrial fibrillation Eliquis-blood thinner to prevent stroke Potassium supplement Please stop taking propranolol. PLEASE CALL YOUR PRIMARY CARE PHYSICIAN OR RETURN TO THE ER IF WITH WORSENING OF SYMPTOMS, INCLUDING Palpitations, chest pain, shortness of breath, dizziness, weakness. Please proceed to the ER immediately for evaluation if you experience any head trauma. PLEASE FOLLOW UP WITH [facility] motor vehicle examiner Dr. Goyal in 2 to 3 weeks. Please call their office to schedule for an appointment. Total Time Total Time Spent Total Time Spent (In Minutes): >30 minutes
[2022-07-01] MEDS ORDERED: METOPROLOL TARTRATE 25 MG TAB PO SCH (21:00)
== END 2022-07-01 13:12 | disposition home or self-care (01) | DRG 309 ==
LOC: ED 00:53 → EDINP 05:52